=== PATIENT | male | born 1990 ===

== ENCOUNTER 2018-07-11 20:23 | Emergency (ER) | payer MEDICAID ==
[2018-07-11 22:51] VITALS: RESP 16; O2SAT 99
[2018-07-11] MEDS ORDERED: Iohexol 240 (50 ml) PO ONE (23:25)
[2018-07-11] MEDS ORDERED: Iohexol 240 (50 ml) ONE (23:40)
[2018-07-11 23:46] LABS: SQUAMOUS EPITHIAL < 1 /hpf (0-5); URINE BILIRUBIN NEGATIVE (NEGATIVE); URINE BLOOD NEGATIVE (NEGATIVE); URINE CLARITY SLIGHTY-CLOUDY (Clear); URINE COLOR YELLOW (YELLOW); URINE GLUCOSE (UA) NEG (Normal); URINE LEUKOCYTE ESTERASE NEG Leu/uL (Negative); URINE PROTEIN NEGATIVE (NEGATIVE); URINE UROBILINOGEN 0.2-1.0 mg/dL (0.2-1.0)
[2018-07-11 23:54] LABS: EOS # 0.4 K/uL (0.0-0.7); EOS % 8.7 % (0.0-4.0); HEMOGLOBIN 13.6 g/dL (12.0-18.0); LYMPH # 2.1 K/uL (1.0-4.3); LYMPH % 47.2 % (20.0-40.0); MEAN CELL VOLUME 91.7 fl (80.0-94.0); MEAN CORPUSCULAR HEMOGLOBIN 30.2 pg (27.0-31.0); MEAN CORPUSCULAR HGB CONC 32.9 g/dL (33.0-37.0); MEAN PLATELET VOLUME 8.1 fl (7.2-11.7); MONO # 0.3 K/uL (0.0-0.8); MONO % 6.8 % (0.0-10.0); NEUT # 1.6 K/uL (1.8-7.0); NEUT % 36.3 % (50.0-75.0); NRBC % 0.2 % (0.0-0.0); RBC 4.51 Mil/uL (4.40-5.90); RED CELL DISTRIBUTION WIDTH 14.4 % (11.5-14.5); WHITE BLOOD COUNT 4.5 K/uL (4.8-10.8)
--- NOTE | 2018-07-11 23:58 | ED PDOC ---
HPI: Abdomen Time Seen by Provider: 07/11/18 23:01 Chief Complaint (Nursing): Abdominal Pain Chief Complaint (Provider): abdominal pain History Per: Patient History/Exam Limitations: no limitations Onset/Duration Of Symptoms: Days (6 months), Waxing/Waning Current Symptoms Are (Timing): Still Present Location Of Pain/Discomfort: Diffuse, RLQ Additional Complaint(s): 28 y/o male presents for evaluation of intermittent diffuse abdominal pain x 6 months. Patient reports pain worsening to right lower abdomen/groin x 2 days. Denies fever, nausea/vomiting, chest pain, shortness of breath, palpitations, urinary symptoms, changes in bowel movements, testicular pain/swelling. Patient evaluated by PMD 2 months ago for same and sent for abdominal ultrasound which was normal and was advised to follow up with GI but patient has not yet done so Past Medical History Reviewed: Historical Data, Nursing Documentation, Vital Signs Vital Signs: Last Vital Signs Temp 98.3 F 07/11/18 20:52 Pulse 62 07/11/18 20:52 Resp 16 07/11/18 20:52 BP 104/64 07/11/18 20:52 Pulse Ox 99 07/11/18 20:52 - Medical History PMH: No Chronic Diseases - Surgical History Surgical History: No Surg Hx - Family History Family History: States: No Known Family Hx - Living Arrangements Living Arrangements: With Family - Home Medications Home Medications: Ambulatory Orders Medication Instructions Recorded Docusate [Colace] 100 mg PO DAILY #15 cap 07/12/18 Polyethylene Glycol 3350 [Miralax] 17 gm PO DAILY PRN #7 powd.pack 07/12/18 - Allergies Allergies/Adverse Reactions: Allergies Allergy/AdvReac Type Severity Reaction Status Date / Time No Known Allergies Allergy Verified 07/11/18 22:49 Review of Systems ROS Statement: Except As Marked, All Systems Reviewed And Found Negative Gastrointestinal: Positive for: Abdominal Pain Physical Exam - Reviewed Nursing Documentation Reviewed: Yes Vital Signs Reviewed: Yes - Physical Exam Appears: Positive for: Well, Non-toxic, No Acute Distress Head Exam: Positive for: ATRAUMATIC, NORMAL INSPECTION, NORMOCEPHALIC Skin: Positive for: Normal Color Eye Exam: Positive for: Normal appearance ENT: Positive for: Normal ENT Inspection Cardiovascular/Chest: Positive for: Regular Rate, Rhythm Respiratory: Positive for: Normal Breath Sounds Gastrointestinal/Abdominal: Positive for: Bowel Sounds, Soft, Tenderness (rlq). Negative for: Distended, Guarding, Rebound Back: Positive for: Normal Inspection Extremity: Positive for: Normal ROM Neurologic/Psych: Positive for: Alert, Oriented (x3) - Laboratory Results Result Diagrams: 07/11/18 23:50 07/11/18 23:50 - ECG O2 Sat by Pulse Oximetry: 99 - Progress ED Course And Treament: labs, urine, CT abd/pelvis USArad impression: Moderate amount of fecal residue in the large bowel No evidence of acute abdominal or pelvic pathology Patient educated on findings, discharged with rx Miralax, Colace Advised high fiber diet, fluids Follow up with PMD within 2-3 days Return precautions given Disposition - Clinical Impression Clinical Impression: Abdominal pain, Constipation - Patient ED Disposition Is Patient to be Admitted: No Counseled Patient/Family Regarding: Studies Performed, Diagnosis, Need For Followup, Rx Given - Disposition Disposition: Routine/Home Disposition Time: 03:08 Condition: IMPROVED Prescriptions: Docusate [Colace] 100 mg PO DAILY #15 cap Polyethylene Glycol 3350 [Miralax] 17 gm PO DAILY PRN #7 powd.pack PRN Reason: Constipation Instructions: Constipation in Adults, Acute Abdomen (Belly Pain) Forms: [facility] ([facility])
[2018-07-12 00:01] LABS: ALB/GLOB RATIO 1.5 (1.0-2.1); ALBUMIN 4.2 g/dL (3.5-5.0); ALT/SGPT 33 U/L (21-72); AST/SGOT 23 U/L (17-59); BLOOD UREA NITROGEN 18 mg/dl (9-20); CALCIUM 8.9 mg/dL (8.4-10.2); GFR NON-AFRICAN AMERICAN > 60; LIPASE 129 U/L (23-300)
[2018-07-12] MEDS ORDERED: Sodium Chloride 0.9% 50 ML IV ONE (01:13)
[2018-07-12] MEDS ORDERED: Iohexol 300 100 ML IJ ONE (01:13)
[2018-07-12 06:42] VITALS: BP 109/69; PULSE 58; TEMP 97.8
--- NOTE | 2018-07-12 11:38 | CT ---
Date of service: 2018-07-12 01:58:58 PROCEDURE: CT Abdomen and Pelvis with contrast HISTORY: right lower abd pain COMPARISON: None. TECHNIQUE: Contrast dose: 100 mL Omnipaque 300 Radiation dose: Total exam DLP = 444.10 mGy-cm. This CT exam was performed using one or more of the following dose reduction techniques: Automated exposure control, adjustment of the mA and/or kV according to patient size, and/or use of iterative reconstruction technique. FINDINGS: LOWER THORAX: Unremarkable. LIVER: Unremarkable. No gross lesion or ductal dilatation. GALLBLADDER AND BILE DUCTS: Unremarkable. PANCREAS: Unremarkable. No gross lesion or ductal dilatation. SPLEEN: Unremarkable. ADRENALS: Unremarkable. No mass. KIDNEYS AND URETERS: Unremarkable. No hydronephrosis. No solid mass. VASCULATURE: Unremarkable. No aortic aneurysm. BOWEL: Mild retained feces. Possible constipation. No bowel obstruction. No abnormal bowel loops. APPENDIX: Normal appendix. PERITONEUM: Unremarkable. No free fluid. No free air. LYMPH NODES: Shotty subcentimeter lymph nodes within the small bowel mesenteric and medial to the cecum and ascending colon, consistent with nonspecific mesenteric adenitis. No enlarged retroperitoneal or pelvic lymph nodes are identified. BLADDER: Nondistended REPRODUCTIVE: Normal prostate BONES: No acute fracture. OTHER FINDINGS: None. IMPRESSION: Possible constipation. Findings consistent with nonspecific mesenteric adenitis. No additional abnormality. The preliminary findings for this examination were reported by [facility] at 2:55 a.m. on 07/12/2018. There is discordance of this report with the preliminary findings.
== END 2018-07-12 03:30 | disposition home or self-care (01) ==
LOC: H.ER 20:23
DX: R10.30 Lower abdominal pain, unspecified (principal); K59.00 Constipation, unspecified
CPT/HCPCS: 74177; 80053; 81003; 83690; 85025; 99283; Q9966; Q9967